=== PATIENT | female | born 1985 | race Caucasian/White ===

== ENCOUNTER 2018-12-13 08:43 | Emergency (ER) | payer MEDICAID ==
[~2018-12-13] VITALS: Ht 160 cm; Wt 73.2 kg
[2018-12-13 08:48] VITALS: BP 137/82; PULSE 70; RESP 18; Ht 160 cm; Wt 73.2 kg
[2018-12-13] MEDS ORDERED: NAPR-985 PO (10:16)
[2018-12-13] MEDS ORDERED: PROM6.2515 PO (10:16)
[2018-12-13] MEDS ORDERED: PSEU-79 PO (10:16)
[2018-12-13] MEDS ORDERED: BENZ-6 PO (10:16)
--- NOTE | 2018-12-13 10:28 | ERD ---
ER Documentation Chief Complaint Chief Complaint intermittent left ear pain and sore throat x 1 month HPI 33-year-old female presenting with left ear pain and sore throat. She states is intermittent over the last month. She has a dry cough. No fevers. Has not taken medications for symptoms. Mild sore throat. Medical history is asthma. NKDA. Surgical history cholecystectomy. Social history denies ROS All systems reviewed and are negative except as per history of present illness. Medications Home Meds Active Scripts Naproxen* (Naprosyn*) 500 Mg Tablet, 500 MG PO BID PRN for PAIN AND/OR INFLAMMATION, #30 TAB Prov:KEENA GALLARDO PA-C 12/13/18 Promethazine Hcl* (Promethazine Hcl* Syrup) 6.25 Mg/5 Ml Syrup, 6.25 MG PO Q6H PRN for COUGH, #100 ML Prov:KEENA GALLARDO PA-C 12/13/18 Benzonatate* (Tessalon Perle*) 100 Mg Capsule, 100 MG PO Q8H PRN for COUGH, #30 CAP Prov:KEENA GALLARDO PA-C 12/13/18 Pseudoephedrine Hcl* (Suphedrin*) 30 Mg Tablet, 30 MG PO Q6 PRN for CONGESTION, #30 TAB Prov:KEENA GALLARDO PA-C 12/13/18 Allergies Allergies: Coded Allergies: No Known Allergy (Unverified , 06/09/14) PMhx/Soc Hx Miscellaneous Medical Probl: Yes (abdominal pain) Hx Alcohol Use: No Hx Substance Use: No Hx Tobacco Use: No FmHx Family History: No diabetes, No coronary disease, No other Physical Exam Vitals Vital Signs Date Temp Pulse Resp B/P (MAP) Pulse Ox O2 O2 Flow FiO2 Time Delivery Rate 12/13/18 97.8 70 18 137/82 100 08:48 (100) Physical Exam GENERAL: The patient is well-appearing, well-nourished, in no acute distress HEENT: Atraumatic. Conjunctivae are pink. Pupils equal, round, and reactive to light. There is no scleral icterus. Tympanic membranes clear bilaterally. Oropharynx clear. NECK: C-spine is soft and supple. There is no meningismus. There is no cervical lymphadenopathy. CHEST: Clear to auscultation bilaterally. There are no rales, wheezes or rhonchi. HEART: Regular rate and rhythm. No murmurs, clicks, rubs or gallops. ABDOMEN:Soft, nontender and nondistended. Good bowel sounds. No rebound or guarding. No gross peritonitis. No gross organomegaly or masses. Procedures/MDM MDM: 33-year-old female presenting with ear pain and sore throat. I have low suspicion for bacterial infection. Patient symptoms are associated with viral syndrome. Patient likely has nasal congestion causing throat irritation and cough. Patient be discharged with supportive medications. I do not feel antibiotics are indicated. Patient is discharged with strict ER precautions and told to follow-up with primary care within 1 to 2 days for close evaluation. All questions answered at discharge Departure Diagnosis: Primary Impression: Eustachian tube dysfunction Condition: Stable Patient Instructions: Uri, Viral, No Abx (Adult) Referrals: [facility] YOU HAVE RECEIVED A MEDICAL SCREENING EXAM AND THE RESULTS INDICATE THAT YOU DO NOT HAVE A CONDITION THAT REQUIRES URGENT TREATMENT IN THE EMERGENCY DEPARTMENT. FURTHER EVALUATION AND TREATMENT OF YOUR CONDITION CAN WAIT UNTIL YOU ARE SEEN IN YOUR DOCTORS OFFICE WITHIN THE NEXT 1-2 DAYS. IT IS YOUR RESPONSIBILITY TO MAKE AN APPOINTMENT FOR FOLOW-UP CARE. IF YOU HAVE A PRIMARY DOCTOR --you should call your primary doctor and schedule an appointment IF YOU DO NOT HAVE A PRIMARY DOCTOR YOU CAN CALL OUR PHYSICIAN REFERRAL HOTLINE AT IF YOU CAN NOT AFFORD TO SEE A PHYSICIAN YOU CAN CHOSE FROM THE FOLLOWING [facility] [address] [facility]. [facility] [address] [facility] [facility] [address] [facility]. [facility] [address] [facility]. [facility] [address] [facility]. [facility]. [address] Additional Instructions: FOLLOW UP WITH YOUR PRIMARY CARE PHYSICIAN TOMORROW.Return to this facility if you are not improving as expected. KEENA GALLARDO PA-C December 13, 2018 10:27
== END 2018-12-13 11:30 | disposition home or self-care (01) ==
LOC: FTE 08:43
DX: H69.92 Unspecified Eustachian tube disorder, left ear (principal)
CPT/HCPCS: 99283